=== PATIENT | male | born 1980 | race Two or more races ===

== ENCOUNTER 2021-05-22 05:19 | Day surgery (SDC) | payer OTHER ==
[~2021-05-22 05:19] MED LIST: KETO10TA2 PO; TAMS0.4C PO
== END 2021-05-22 15:10 | disposition home or self-care (01) ==
LOC: CIR.AMB 05:19
PROVIDERS: ATTEND Urology
DX: N20.1 Calculus of ureter (principal); I10 Essential (primary) hypertension; Z86.16 Personal history of COVID-19; E66.9 Obesity, unspecified